=== PATIENT | male | born 1930 | race Caucasian/White ===

== ENCOUNTER 2017-05-30 23:31 | Inpatient (IN) | payer MEDICARE ==
[2017-05-31] MEDS: IV NORMAL SALINE 1000ML BAG 1,000 ML IV ×2 (00:15→15:38)
[2017-05-31 05:12] LABS: ADD MAN DIFF? NO
[2017-05-31 05:32] LABS: BASO # 0.1 x10^3/uL (0.0-0.2); BASO % 0 % (0-3); EOS # 0.1 x10^3/uL (0.0-0.7); EOS % 0 % (0-3); HEMATOCRIT 39.6 % (39.0-53.0); HEMOGLOBIN 13.1 g/dL (13.0-17.5); LYMPH # 0.5 x10^3/uL (1.0-4.8); LYMPH % 3 % (24-48); MEAN CORPUSCULAR HEMOGLOBIN 30 pg (25-35); MEAN CORPUSCULAR HGB CONC 33 g/dL (31-37); MEAN CORPUSCULAR VOLUME 90 fL (79-100); MONO # 0.9 x10^3/uL (0.0-1.1); MONO % 4 % (0-9); NEUT # 19.8 x10^3uL (1.8-7.7); NEUT % 93 % (31-73); PLATELET COUNT 166 x10^3/uL (140-400); RED CELL DISTRIBUTION WIDTH 14.4 % (11.5-14.5); WHITE BLOOD COUNT 21.4 x10^3/uL (4.0-11.0)
[2017-05-31 05:40] LABS: INR 1.3 (0.8-1.1); PROTHROMBIN TIME PATIENT 15.5 SEC (11.7-14.0)
[2017-05-31 05:41] LABS: ANION GAP 6 (6-14); BLOOD UREA NITROGEN 37 mg/dL (8-26); CALCIUM 8.8 mg/dL (8.5-10.1); CARBON DIOXIDE 29 mmol/L (21-32); CHLORIDE 109 mmol/L (98-107); CREATININE 1.6 mg/dL (0.7-1.3); GFR 41.4; GLUCOSE 143 mg/dL (70-99); POTASSIUM 4.6 mmol/L (3.5-5.1); SODIUM 144 mmol/L (136-145)
[2017-05-31 09:03] LABS: % BANDS 15 % (0-9); % LYMPHS 1 % (24-48); % MONOS 5 % (0-10); % SEGS 79 % (35-66); PLT ESTIMATE ADEQUATE (ADEQUATE)
[2017-05-31 09:07] LABS: BURR CELLS PRESENT
[2017-05-31] MEDS ORDERED: OLANZapine 5 MG TABLET PO (10:15)
[2017-05-31] MEDS ORDERED: LORazepam 1 MG TABLET PO (10:15)
[2017-05-31] MEDS ORDERED: MAG HYDROX/ALUMINUM HYD/SIMETH 30 ML ORAL.SUSP PO (10:15)
[2017-05-31] MEDS ORDERED: ACETAMINOPHEN 325 MG TABLET. PO (10:15)
[2017-05-31] MEDS ORDERED: METHYL SALICYLATE/MENTHOL TOPICAL OINTMENT 29GM TUBE. TP (10:15)
[2017-05-31] MEDS: ASPIRIN CHEWABLE 81 MG TABLET. PO (11:00)
[2017-05-31] MEDS: amLODIPine BESYLATE 10 MG TABLET PO (11:00)
[2017-05-31] MEDS: CHOLECALCIFEROL (VITAMIN D3) 1,000 UNIT TABLET PO (11:00)
[2017-05-31] MEDS: METOPROLOL SUCC 24HR ER 25 MG TAB.ER.24H. PO ×2 (11:00→21:00)
[2017-05-31] MEDS: DIVALPROEX DELAYED RELEASE 500 MG TABLET.DR. PO (11:00)
[2017-05-31] MEDS: CYANOCOBALAMIN (VITAMIN B-12) 1,000 MCG TABLET. PO (11:00)
[2017-05-31] MEDS: QUEtiapine 25 MG TABLET. PO (11:11)
[2017-05-31] MEDS: busPIRone 5 MG TABLET. PO ×3 (13:00→21:00)
[2017-05-31] MEDS: HALOPERIDOL LACTATE 5 MG/ML VIAL. IVP ×2 (15:38→19:56)
[2017-05-31] MEDS: QUEtiapine 100 MG TABLET. PO ×2 (16:00→21:00)
[2017-05-31] MEDS ORDERED: PIP/TAZO PER PHARMACY MC (18:45)
[2017-05-31] MEDS: MORPHINE SULFATE 4 MG/ML DISP.SYRIN. IV (20:17)
[2017-05-31] MEDS: PIPERACILLIN/TAZOBACTAM 3.375 GM in IV NORMAL SALINE 100ML 100 ML IV (20:20)
[2017-05-31] MEDS: AMITRIPTYLINE HCL 25 MG TABLET. PO (21:00)
[2017-05-31] MEDS ORDERED: NON FORMULARY ITEM (Melatonin 2 TAB) PO (21:00)
[2017-05-31] MEDS: ATORVASTATIN CALCIUM 40 MG TABLET. PO (21:00)
[2017-05-31] MEDS: VANCOMYCIN 1.75 GM in IV DEXTROSE 5 %-0.2 % NACL 500 ML IV (22:01)
[2017-06-01] MEDS: VANCOMYCIN PER PHARMACY MC ×2 (01:19→12:41)
[2017-06-01] MEDS: PIPERACILLIN/TAZOBACTAM 3.375 GM in IV NORMAL SALINE 100ML 100 ML IV ×4 (01:33→17:28)
[2017-06-01] MEDS: HALOPERIDOL LACTATE 5 MG/ML VIAL. IVP ×2 (02:20→11:17)
[2017-06-01] MEDS: IV NORMAL SALINE 1000ML BAG 1,000 ML IV ×3 (02:55→17:27)
[2017-06-01 04:22] LABS: MRSA BY PCR Negative (Negative)
[2017-06-01 05:31] LABS: ADD MAN DIFF? NO
[2017-06-01 05:41] LABS: BASO % 0 % (0-3); EOS # 0.3 x10^3/uL (0.0-0.7); EOS % 2 % (0-3); HEMATOCRIT 39.9 % (39.0-53.0); HEMOGLOBIN 13.3 g/dL (13.0-17.5); LYMPH # 1.3 x10^3/uL (1.0-4.8); LYMPH % 8 % (24-48); MEAN CORPUSCULAR HEMOGLOBIN 30 pg (25-35); MEAN CORPUSCULAR HGB CONC 33 g/dL (31-37); MEAN CORPUSCULAR VOLUME 89 fL (79-100); MONO # 0.9 x10^3/uL (0.0-1.1); MONO % 6 % (0-9); NEUT # 12.6 x10^3uL (1.8-7.7); NEUT % 83 % (31-73); PLATELET COUNT 150 x10^3/uL (140-400); RED BLOOD COUNT 4.51 x10^6/uL (4.30-5.70); RED CELL DISTRIBUTION WIDTH 14.2 % (11.5-14.5); WHITE BLOOD COUNT 15.2 x10^3/uL (4.0-11.0)
[2017-06-01 06:02] LABS: CHOLESTEROL 94 mg/dL (0-200); HDLC 45 mg/dL (40-60); LDLC 38 mg/dL (0-100); NON-HDL CHOLESTEROL 49 mg/dL (0-129); TRIGLYCERIDES 55 mg/dL (0-150); VLDLC 11 mg/dL (0-40)
[2017-06-01 06:03] LABS: ALBUMIN 3.2 g/dL (3.4-5.0); ALK PHOS 92 U/L (46-116); ALT (SGPT) 33 U/L (16-63); ANION GAP 10 (6-14); AST (SGOT) 26 U/L (15-37); BLOOD UREA NITROGEN 30 mg/dL (8-26); BUN/CREATININE RATIO 23 (6-20); CALCIUM 8.8 mg/dL (8.5-10.1); CARBON DIOXIDE 26 mmol/L (21-32); CHLORIDE 109 mmol/L (98-107); CREATININE 1.3 mg/dL (0.7-1.3); GFR 52.6; GLUCOSE 119 mg/dL (70-99); SODIUM 145 mmol/L (136-145); TOTAL BILIRUBIN 1.2 mg/dL (0.2-1.0); TOTAL PROTEIN 6.4 g/dL (6.4-8.2)
[2017-06-01 06:05] LABS: CHOLESTEROL/HDL RATIO 2.1
[2017-06-01] MEDS ORDERED: fentaNYL PF VIAL 100 MCG/2 ML VIAL IV ×4 (07:00→10:00)
[2017-06-01] MEDS ORDERED: PROCHLORPERAZINE 10 MG/2 ML VIAL. IV ×2 (07:00→10:00)
[2017-06-01] MEDS: IV RINGERS,LACTATED 1000ML 1,000 ML IV ×2 (07:00→09:48)
[2017-06-01] MEDS ORDERED: MORPHINE SULFATE 4 MG/ML DISP.SYRIN. IV (07:00)
[2017-06-01] MEDS ORDERED: HYDROmorphone 2 MG/ML VIAL IV ×2 (07:00→10:00)
[2017-06-01] MEDS ORDERED: LIDOCAINE 1% PF 2 ML VIAL. ID ×2 (07:00→10:00)
[2017-06-01] MEDS: QUEtiapine 25 MG TABLET. PO ×2 (07:30→11:30)
[2017-06-01] MEDS: BUDESONIDE 0.5 MG/2 ML NEBU. NEB ×2 (08:25→18:25)
[2017-06-01] MEDS: POLYETHYLENE GLYCOL 3350 17 GM PACKET. PO (09:00)
[2017-06-01] MEDS: CHOLECALCIFEROL (VITAMIN D3) 1,000 UNIT TABLET PO (09:00)
[2017-06-01] MEDS: busPIRone 5 MG TABLET. PO ×4 (09:00→21:12)
[2017-06-01] MEDS: amLODIPine BESYLATE 10 MG TABLET PO (09:00)
[2017-06-01] MEDS: DIVALPROEX DELAYED RELEASE 500 MG TABLET.DR. PO (09:00)
[2017-06-01] MEDS: ASPIRIN CHEWABLE 81 MG TABLET. PO (09:00)
[2017-06-01] MEDS: LACTOBACILLUS RHAMNOSUS GG 1 CAPSULE. PO ×2 (09:00→21:11)
[2017-06-01] MEDS: METOPROLOL SUCC 24HR ER 25 MG TAB.ER.24H. PO ×2 (09:00→21:12)
[2017-06-01] MEDS: CYANOCOBALAMIN (VITAMIN B-12) 1,000 MCG TABLET. PO (09:00)
[2017-06-01] MEDS ORDERED: MORPHINE SULFATE 2 MG/ML DISP.SYRIN. IV (10:00)
[2017-06-01] MEDS ORDERED: DEXAMETHASONE SOD PHOS 20 MG/5 ML VIAL. (11:13)
[2017-06-01] MEDS ORDERED: ONDANSETRON PF 4 MG/2 ML VIAL. (11:13)
[2017-06-01] MEDS ORDERED: PROPOFOL 20 ML IV (11:13)
[2017-06-01] MEDS ORDERED: PHENYLEPHRINE 10 MG/ML VIAL. (11:13)
[2017-06-01] MEDS ORDERED: LIDOCAINE 1% PF 5 ML VIAL. (11:13)
[2017-06-01] MEDS ORDERED: fentaNYL PF VIAL 100 MCG/2 ML VIAL (11:13)
[2017-06-01] MEDS ORDERED: ROCURONIUM 50 MG/5 ML VIAL. (11:13)
[2017-06-01] MEDS ORDERED: DESFLURANE > 120 MINUTES IH (11:15)
[2017-06-01] MEDS: IPRATRPIUM/ALBUTEROL 0.5/2.5MG 3 ML NEBU. NEB ×3 (12:42→18:25)
[2017-06-01] MEDS: MORPHINE SULFATE 5 MG, KETOROLAC 30 MG, ROPIVacaine 0.5% PF 60 ML, EPINEPHrine 0.5 MG i... INT ART (13:52)
[2017-06-01] MEDS ORDERED: GLYCOPYRROLATE 1 MG/5 ML VIAL. (14:59)
[2017-06-01] MEDS ORDERED: NEOSTIGMINE 10 MG/10 ML VIAL. (14:59)
[2017-06-01] MEDS ORDERED: SEVOFLURANE > 120 MINUTES. IH (15:01)
[2017-06-01] MEDS: QUEtiapine 100 MG TABLET. PO ×2 (16:00→21:12)
[2017-06-01] MEDS: MORPHINE SULFATE 4 MG/ML DISP.SYRIN. IV (18:21)
[2017-06-01] MEDS: VANCOMYCIN 1.25 GM in IV DEXTROSE 5 %-0.2 % NACL 250 ML IV (21:11)
[2017-06-01] MEDS: AMITRIPTYLINE HCL 25 MG TABLET. PO (21:12)
[2017-06-01] MEDS: ATORVASTATIN CALCIUM 40 MG TABLET. PO (21:12)
[2017-06-02] MEDS: MORPHINE SULFATE 4 MG/ML DISP.SYRIN. IV ×2 (02:56→07:16)
[2017-06-02] MEDS: PIPERACILLIN/TAZOBACTAM 3.375 GM in IV NORMAL SALINE 100ML 100 ML IV ×5 (05:56→23:59)
[2017-06-02] MEDS: HEPARIN PF for SUB-Q USE 5,000 UNIT/0.5 ML VIAL. SQ ×3 (05:58→21:24)
[2017-06-02] MEDS: IPRATRPIUM/ALBUTEROL 0.5/2.5MG 3 ML NEBU. NEB ×4 (07:16→18:25)
[2017-06-02] MEDS: BUDESONIDE 0.5 MG/2 ML NEBU. NEB ×2 (07:17→18:25)
[2017-06-02] MEDS: QUEtiapine 25 MG TABLET. PO ×2 (08:09→11:33)
[2017-06-02] MEDS: DIVALPROEX DELAYED RELEASE 500 MG TABLET.DR. PO (08:49)
[2017-06-02] MEDS: CHOLECALCIFEROL (VITAMIN D3) 1,000 UNIT TABLET PO (08:49)
[2017-06-02] MEDS: LACTOBACILLUS RHAMNOSUS GG 1 CAPSULE. PO ×2 (08:50→21:10)
[2017-06-02] MEDS: busPIRone 5 MG TABLET. PO ×4 (08:50→21:10)
[2017-06-02] MEDS: ASPIRIN CHEWABLE 81 MG TABLET. PO (08:50)
[2017-06-02] MEDS: CYANOCOBALAMIN (VITAMIN B-12) 1,000 MCG TABLET. PO (08:50)
[2017-06-02] MEDS: METOPROLOL SUCC 24HR ER 25 MG TAB.ER.24H. PO ×2 (08:51→21:11)
[2017-06-02] MEDS: amLODIPine BESYLATE 10 MG TABLET PO (08:53)
[2017-06-02] MEDS: POLYETHYLENE GLYCOL 3350 17 GM PACKET. PO (08:55)
[2017-06-02] MEDS: IV NORMAL SALINE 1000ML BAG 1,000 ML IV (11:57)
[2017-06-02] MEDS: VANCOMYCIN PER PHARMACY MC ×2 (13:27→23:18)
[2017-06-02] MEDS: QUEtiapine 100 MG TABLET. PO ×2 (15:37→21:10)
[2017-06-02] MEDS: AMITRIPTYLINE HCL 25 MG TABLET. PO (21:10)
[2017-06-02] MEDS: ATORVASTATIN CALCIUM 40 MG TABLET. PO (21:10)
[2017-06-02 21:44] LABS: CREATININE 1.3 mg/dL (0.7-1.3)
[2017-06-02 21:44] LABS: GFR 52.6
[2017-06-02 21:51] LABS: VANC TR 6.2 mcg/mL (10.0-20.0)
[2017-06-02] MEDS: VANCOMYCIN 1 GM in IV DEXTROSE 5 %-0.2 % NACL 250 ML IV (22:51)
[2017-06-03 05:16] LABS: HEMATOCRIT 34.2 % (39.0-53.0); HEMOGLOBIN 11.5 g/dL (13.0-17.5); MEAN CORPUSCULAR HEMOGLOBIN 30 pg (25-35); MEAN CORPUSCULAR HGB CONC 34 g/dL (31-37); MEAN CORPUSCULAR VOLUME 89 fL (79-100); PLATELET COUNT 148 x10^3/uL (140-400); RED BLOOD COUNT 3.83 x10^6/uL (4.30-5.70); RED CELL DISTRIBUTION WIDTH 14.5 % (11.5-14.5); WHITE BLOOD COUNT 16.7 x10^3/uL (4.0-11.0)
[2017-06-03 05:54] LABS: ALBUMIN 2.8 g/dL (3.4-5.0); ALBUMIN/GLOBULIN RATIO 0.8 (1.0-1.7); ALK PHOS 80 U/L (46-116); ALT (SGPT) 29 U/L (16-63); ANION GAP 9 (6-14); AST (SGOT) 43 U/L (15-37); BLOOD UREA NITROGEN 18 mg/dL (8-26); BUN/CREATININE RATIO 18 (6-20); CALCIUM 8.4 mg/dL (8.5-10.1); CARBON DIOXIDE 25 mmol/L (21-32); CHLORIDE 112 mmol/L (98-107); GFR 71.2; GLUCOSE 118 mg/dL (70-99); POTASSIUM 3.7 mmol/L (3.5-5.1); SODIUM 146 mmol/L (136-145); TOTAL PROTEIN 6.5 g/dL (6.4-8.2)
[2017-06-03] MEDS: IV NORMAL SALINE 1000ML BAG 1,000 ML IV (06:09)
[2017-06-03] MEDS: PIPERACILLIN/TAZOBACTAM 3.375 GM in IV NORMAL SALINE 100ML 100 ML IV ×4 (06:09→23:58)
[2017-06-03] MEDS: HEPARIN PF for SUB-Q USE 5,000 UNIT/0.5 ML VIAL. SQ ×3 (06:13→22:29)
[2017-06-03] MEDS: IPRATRPIUM/ALBUTEROL 0.5/2.5MG 3 ML NEBU. NEB ×4 (07:16→20:32)
[2017-06-03] MEDS: BUDESONIDE 0.5 MG/2 ML NEBU. NEB ×2 (07:17→20:32)
[2017-06-03] MEDS: QUEtiapine 25 MG TABLET. PO ×2 (07:30→11:30)
[2017-06-03] MEDS: ASPIRIN CHEWABLE 81 MG TABLET. PO (09:00)
[2017-06-03] MEDS: VANCOMYCIN PER PHARMACY MC (11:07)
[2017-06-03] MEDS: DIVALPROEX DELAYED RELEASE 500 MG TABLET.DR. PO (11:42)
[2017-06-03] MEDS: LACTOBACILLUS RHAMNOSUS GG 1 CAPSULE. PO ×2 (11:42→21:00)
[2017-06-03] MEDS: POLYETHYLENE GLYCOL 3350 17 GM PACKET. PO (11:42)
[2017-06-03] MEDS: busPIRone 5 MG TABLET. PO ×4 (11:42→21:00)
[2017-06-03] MEDS: CHOLECALCIFEROL (VITAMIN D3) 1,000 UNIT TABLET PO (11:43)
[2017-06-03] MEDS: CYANOCOBALAMIN (VITAMIN B-12) 1,000 MCG TABLET. PO (11:43)
[2017-06-03] MEDS: METOPROLOL SUCC 24HR ER 25 MG TAB.ER.24H. PO ×2 (11:43→21:00)
[2017-06-03] MEDS: VANCOMYCIN 1 GM in IV DEXTROSE 5 %-0.2 % NACL 250 ML IV ×2 (11:57→22:22)
[2017-06-03] MEDS: AMINO AC 3%/ELECTROLYTE/GLYCER 1,000 ML IV (12:56)
[2017-06-03] MEDS: QUEtiapine 100 MG TABLET. PO ×2 (15:24→21:00)
[2017-06-03] MEDS: HALOPERIDOL LACTATE 5 MG/ML VIAL. IVP (17:51)
[2017-06-03] MEDS: AMITRIPTYLINE HCL 25 MG TABLET. PO (21:00)
[2017-06-03] MEDS: ATORVASTATIN CALCIUM 40 MG TABLET. PO (21:00)
[2017-06-04] MEDS: AMINO AC 3%/ELECTROLYTE/GLYCER 1,000 ML IV ×2 (02:04→13:59)
[2017-06-04 05:14] LABS: HEMATOCRIT 38.7 % (39.0-53.0); HEMOGLOBIN 12.9 g/dL (13.0-17.5); MEAN CORPUSCULAR HEMOGLOBIN 30 pg (25-35); MEAN CORPUSCULAR HGB CONC 33 g/dL (31-37); MEAN CORPUSCULAR VOLUME 89 fL (79-100); PLATELET COUNT 196 x10^3/uL (140-400); RED BLOOD COUNT 4.35 x10^6/uL (4.30-5.70); RED CELL DISTRIBUTION WIDTH 14.7 % (11.5-14.5); WHITE BLOOD COUNT 14.2 x10^3/uL (4.0-11.0)
[2017-06-04 05:35] LABS: ANION GAP 11 (6-14); BLOOD UREA NITROGEN 21 mg/dL (8-26); CALCIUM 9.3 mg/dL (8.5-10.1); CARBON DIOXIDE 26 mmol/L (21-32); CHLORIDE 107 mmol/L (98-107); GFR 71.2; GLUCOSE 134 mg/dL (70-99); MAGNESIUM 2.1 mg/dL (1.8-2.4); POTASSIUM 3.6 mmol/L (3.5-5.1); SODIUM 144 mmol/L (136-145)
[2017-06-04] MEDS: PIPERACILLIN/TAZOBACTAM 3.375 GM in IV NORMAL SALINE 100ML 100 ML IV ×4 (06:38→23:48)
[2017-06-04] MEDS: HEPARIN PF for SUB-Q USE 5,000 UNIT/0.5 ML VIAL. SQ ×3 (06:43→21:33)
[2017-06-04] MEDS: QUEtiapine 25 MG TABLET. PO ×2 (07:05→11:30)
[2017-06-04] MEDS: BUDESONIDE 0.5 MG/2 ML NEBU. NEB ×2 (07:17→20:13)
[2017-06-04] MEDS: IPRATRPIUM/ALBUTEROL 0.5/2.5MG 3 ML NEBU. NEB ×4 (07:17→20:13)
[2017-06-04] MEDS: busPIRone 5 MG TABLET. PO ×4 (08:06→20:12)
[2017-06-04] MEDS: ASPIRIN CHEWABLE 81 MG TABLET. PO (08:06)
[2017-06-04] MEDS: LACTOBACILLUS RHAMNOSUS GG 1 CAPSULE. PO ×2 (08:06→20:12)
[2017-06-04] MEDS: CHOLECALCIFEROL (VITAMIN D3) 1,000 UNIT TABLET PO (08:07)
[2017-06-04] MEDS: METOPROLOL SUCC 24HR ER 25 MG TAB.ER.24H. PO ×2 (08:07→20:12)
[2017-06-04] MEDS: CYANOCOBALAMIN (VITAMIN B-12) 1,000 MCG TABLET. PO (08:07)
[2017-06-04] MEDS: DIVALPROEX DELAYED RELEASE 500 MG TABLET.DR. PO (08:07)
[2017-06-04] MEDS: POLYETHYLENE GLYCOL 3350 17 GM PACKET. PO (08:07)
[2017-06-04] MEDS: VANCOMYCIN 1 GM in IV DEXTROSE 5 %-0.2 % NACL 250 ML IV ×3 (11:00→21:28)
[2017-06-04 11:16] LABS: VANC TR 8.2 mcg/mL (10.0-20.0)
[2017-06-04] MEDS: VANCOMYCIN PER PHARMACY MC ×2 (11:38→11:46)
[2017-06-04] MEDS: QUEtiapine 100 MG TABLET. PO ×2 (16:00→20:12)
[2017-06-04] MEDS: ATORVASTATIN CALCIUM 40 MG TABLET. PO (20:12)
[2017-06-04] MEDS: AMITRIPTYLINE HCL 25 MG TABLET. PO (20:12)
[2017-06-04] MEDS: ACETAMINOPHEN 325 MG SUPP.RECT. PR (23:48)
[2017-06-05] MEDS: VANCOMYCIN 1 GM in IV DEXTROSE 5 %-0.2 % NACL 250 ML IV ×2 (03:48→12:53)
[2017-06-05] MEDS: AMINO AC 3%/ELECTROLYTE/GLYCER 1,000 ML IV (03:49)
[2017-06-05 05:11] LABS: HEMATOCRIT 33.6 % (39.0-53.0); HEMOGLOBIN 11.2 g/dL (13.0-17.5); MEAN CORPUSCULAR HEMOGLOBIN 30 pg (25-35); MEAN CORPUSCULAR HGB CONC 33 g/dL (31-37); MEAN CORPUSCULAR VOLUME 89 fL (79-100); PLATELET COUNT 215 x10^3/uL (140-400); RED BLOOD COUNT 3.79 x10^6/uL (4.30-5.70); RED CELL DISTRIBUTION WIDTH 14.6 % (11.5-14.5); WHITE BLOOD COUNT 18.5 x10^3/uL (4.0-11.0)
[2017-06-05 05:27] LABS: ANION GAP 12 (6-14); BLOOD UREA NITROGEN 31 mg/dL (8-26); CALCIUM 8.8 mg/dL (8.5-10.1); CARBON DIOXIDE 24 mmol/L (21-32); CHLORIDE 111 mmol/L (98-107); GFR 71.2; GLUCOSE 164 mg/dL (70-99); MAGNESIUM 2.2 mg/dL (1.8-2.4); POTASSIUM 3.3 mmol/L (3.5-5.1); SODIUM 147 mmol/L (136-145)
[2017-06-05] MEDS: PIPERACILLIN/TAZOBACTAM 3.375 GM in IV NORMAL SALINE 100ML 100 ML IV ×3 (06:00→17:12)
[2017-06-05] MEDS: HEPARIN PF for SUB-Q USE 5,000 UNIT/0.5 ML VIAL. SQ ×3 (06:03→23:32)
[2017-06-05] MEDS: QUEtiapine 25 MG TABLET. PO ×2 (06:06→11:30)
[2017-06-05] MEDS: BUDESONIDE 0.5 MG/2 ML NEBU. NEB ×2 (07:08→20:08)
[2017-06-05] MEDS: IPRATRPIUM/ALBUTEROL 0.5/2.5MG 3 ML NEBU. NEB ×4 (07:08→20:07)
[2017-06-05] MEDS: busPIRone 5 MG TABLET. PO ×4 (09:00→21:00)
[2017-06-05] MEDS: METOPROLOL SUCC 24HR ER 25 MG TAB.ER.24H. PO ×2 (09:00→21:00)
[2017-06-05] MEDS: CHOLECALCIFEROL (VITAMIN D3) 1,000 UNIT TABLET PO (09:00)
[2017-06-05] MEDS: ASPIRIN CHEWABLE 81 MG TABLET. PO (09:00)
[2017-06-05] MEDS: DIVALPROEX DELAYED RELEASE 500 MG TABLET.DR. PO (09:00)
[2017-06-05] MEDS: CYANOCOBALAMIN (VITAMIN B-12) 1,000 MCG TABLET. PO (09:00)
[2017-06-05] MEDS: POLYETHYLENE GLYCOL 3350 17 GM PACKET. PO (09:00)
[2017-06-05] MEDS: LACTOBACILLUS RHAMNOSUS GG 1 CAPSULE. PO ×2 (09:00→21:00)
[2017-06-05 11:57] LABS: VANC TR 14.3 mcg/mL (10.0-20.0)
[2017-06-05] MEDS: POTASSIUM CL 40MEQ D5-0.45NACL 1,000 ML IV (14:29)
[2017-06-05] MEDS: QUEtiapine 100 MG TABLET. PO ×2 (15:17→21:00)
[2017-06-05 15:50] LABS: BILIRUBIN,URINE NEGATIVE (NEG); CLARITY,URINE CLEAR; COLOR,URINE YELLOW; GLUCOSE,URINE NEGATIVE (NEG); NITRITE,URINE NEGATIVE (NEG); PH,URINE 5.5; PROTEIN,URINE 30 mg/dL (NEG-TRACE)
[2017-06-05 16:00] LABS: SQUAMOUS EPITHELIAL CELL,UR OCC /LPF
[2017-06-05 16:02] LABS: BACTERIA,URINE 0 /HPF (0-FEW); WBC,URINE 0 /HPF (0-4)
[2017-06-05] MEDS: AMITRIPTYLINE HCL 25 MG TABLET. PO (21:00)
[2017-06-05] MEDS: ATORVASTATIN CALCIUM 40 MG TABLET. PO (21:00)
[2017-06-06] MEDS: PIPERACILLIN/TAZOBACTAM 3.375 GM in IV NORMAL SALINE 100ML 100 ML IV ×5 (00:20→23:33)
[2017-06-06] MEDS: POTASSIUM CL 40MEQ D5-0.45NACL 1,000 ML IV (06:11)
[2017-06-06] MEDS: HEPARIN PF for SUB-Q USE 5,000 UNIT/0.5 ML VIAL. SQ ×3 (06:20→21:52)
[2017-06-06 06:53] LABS: HEMATOCRIT 32.1 % (39.0-53.0); HEMOGLOBIN 10.5 g/dL (13.0-17.5); MEAN CORPUSCULAR HEMOGLOBIN 29 pg (25-35); MEAN CORPUSCULAR HGB CONC 33 g/dL (31-37); MEAN CORPUSCULAR VOLUME 89 fL (79-100); PLATELET COUNT 266 x10^3/uL (140-400); RED CELL DISTRIBUTION WIDTH 14.4 % (11.5-14.5)
[2017-06-06] MEDS: BUDESONIDE 0.5 MG/2 ML NEBU. NEB ×2 (06:56→19:16)
[2017-06-06] MEDS: IPRATRPIUM/ALBUTEROL 0.5/2.5MG 3 ML NEBU. NEB ×4 (06:56→19:16)
[2017-06-06 07:24] LABS: ANION GAP 12 (6-14); BLOOD UREA NITROGEN 27 mg/dL (8-26); CALCIUM 8.7 mg/dL (8.5-10.1); CARBON DIOXIDE 27 mmol/L (21-32); CHLORIDE 115 mmol/L (98-107); GFR 71.2; GLUCOSE 156 mg/dL (70-99); POTASSIUM 3.7 mmol/L (3.5-5.1); SODIUM 154 mmol/L (136-145)
[2017-06-06] MEDS: LACTOBACILLUS RHAMNOSUS GG 1 CAPSULE. PO ×2 (09:41→21:00)
[2017-06-06] MEDS: busPIRone 5 MG TABLET. PO ×4 (09:41→21:00)
[2017-06-06] MEDS: ASPIRIN CHEWABLE 81 MG TABLET. PO (09:41)
[2017-06-06] MEDS: QUEtiapine 25 MG TABLET. PO ×2 (09:41→11:28)
[2017-06-06] MEDS: DIVALPROEX DELAYED RELEASE 500 MG TABLET.DR. PO (09:43)
[2017-06-06] MEDS: POLYETHYLENE GLYCOL 3350 17 GM PACKET. PO (09:44)
[2017-06-06] MEDS: CHOLECALCIFEROL (VITAMIN D3) 1,000 UNIT TABLET PO (09:44)
[2017-06-06] MEDS: CYANOCOBALAMIN (VITAMIN B-12) 1,000 MCG TABLET. PO (09:44)
[2017-06-06] MEDS: METOPROLOL SUCC 24HR ER 25 MG TAB.ER.24H. PO ×2 (09:44→21:00)
[2017-06-06] MEDS: POTASSIUM CL 20MEQ IN D5W 1,000 ML IV (11:27)
[2017-06-06] MEDS: BISACODYL 10 MG SUPP.RECT. PR (13:33)
[2017-06-06] MEDS: VANCOMYCIN PER PHARMACY MC ×2 (14:02→14:07)
[2017-06-06] MEDS ORDERED: VANCOMYCIN 2 GM in IV DEXTROSE 5 %-0.2 % NACL 500 ML IV (14:30)
[2017-06-06 14:37] LABS: BASE EXCESS ABG 0 mmol/L (-3-3); HCO3 ABG 31 mmol/L (21-28); PO2 ABG 75 mmHg (65-108); SAT O2 ABG 90 % (92-99)
[2017-06-06 15:25] LABS: FIO2 ABG 50; PCO2 ABG 92 mmHg (35-46); PH ABG 7.15 (7.35-7.45)
[2017-06-06] MEDS: VANCOMYCIN 1.25 GM in IV DEXTROSE 5 %-0.2 % NACL 250 ML IV (16:03)
[2017-06-06] MEDS: QUEtiapine 100 MG TABLET. PO ×2 (16:15→21:00)
[2017-06-06] MEDS: ATORVASTATIN CALCIUM 40 MG TABLET. PO (21:00)
[2017-06-06] MEDS: AMITRIPTYLINE HCL 25 MG TABLET. PO (21:00)
[2017-06-07] MEDS: POTASSIUM CL 20MEQ IN D5W 1,000 ML IV ×2 (01:20→12:00)
[2017-06-07] MEDS: VANCOMYCIN 1.25 GM in IV DEXTROSE 5 %-0.2 % NACL 250 ML IV (03:15)
[2017-06-07] MEDS: HEPARIN PF for SUB-Q USE 5,000 UNIT/0.5 ML VIAL. SQ ×2 (05:56→14:00)
[2017-06-07] MEDS: PIPERACILLIN/TAZOBACTAM 3.375 GM in IV NORMAL SALINE 100ML 100 ML IV ×2 (05:57→11:45)
[2017-06-07] MEDS: QUEtiapine 25 MG TABLET. PO ×2 (05:57→11:25)
[2017-06-07] MEDS: IPRATRPIUM/ALBUTEROL 0.5/2.5MG 3 ML NEBU. NEB ×3 (06:57→15:09)
[2017-06-07] MEDS: BUDESONIDE 0.5 MG/2 ML NEBU. NEB (06:57)
[2017-06-07 07:18] LABS: HEMATOCRIT 28.1 % (39.0-53.0); HEMOGLOBIN 9.4 g/dL (13.0-17.5); MEAN CORPUSCULAR HEMOGLOBIN 30 pg (25-35); MEAN CORPUSCULAR HGB CONC 33 g/dL (31-37); MEAN CORPUSCULAR VOLUME 89 fL (79-100); PLATELET COUNT 278 x10^3/uL (140-400); RED BLOOD COUNT 3.15 x10^6/uL (4.30-5.70); RED CELL DISTRIBUTION WIDTH 14.6 % (11.5-14.5); WHITE BLOOD COUNT 17.3 x10^3/uL (4.0-11.0)
[2017-06-07 07:32] LABS: ANION GAP 11 (6-14); BLOOD UREA NITROGEN 50 mg/dL (8-26); CALCIUM 8.6 mg/dL (8.5-10.1); CARBON DIOXIDE 25 mmol/L (21-32); CHLORIDE 117 mmol/L (98-107); CREATININE 1.9 mg/dL (0.7-1.3); GFR 33.9; GLUCOSE 153 mg/dL (70-99); POTASSIUM 3.2 mmol/L (3.5-5.1); SODIUM 153 mmol/L (136-145)
[2017-06-07] MEDS: METOPROLOL SUCC 24HR ER 25 MG TAB.ER.24H. PO (09:00)
[2017-06-07] MEDS: POLYETHYLENE GLYCOL 3350 17 GM PACKET. PO (09:00)
[2017-06-07] MEDS: DIVALPROEX DELAYED RELEASE 500 MG TABLET.DR. PO (09:00)
[2017-06-07] MEDS: LACTOBACILLUS RHAMNOSUS GG 1 CAPSULE. PO (09:00)
[2017-06-07] MEDS: busPIRone 5 MG TABLET. PO ×2 (09:00→11:36)
[2017-06-07] MEDS: CYANOCOBALAMIN (VITAMIN B-12) 1,000 MCG TABLET. PO (09:00)
[2017-06-07] MEDS: ASPIRIN CHEWABLE 81 MG TABLET. PO (09:00)
[2017-06-07] MEDS: CHOLECALCIFEROL (VITAMIN D3) 1,000 UNIT TABLET PO (09:00)
[2017-06-07] MEDS: MORPHINE SULFATE 4 MG/ML DISP.SYRIN. IV ×2 (11:44→15:39)
[2017-06-07] MEDS: HALOPERIDOL LACTATE 5 MG/ML VIAL. IVP ×2 (12:44→16:36)
[2017-06-07] MEDS: QUEtiapine 100 MG TABLET. PO (15:42)
[2017-06-07] MEDS ORDERED: PIPERACILLIN/TAZOBACTAM 3.375 GM in IV NORMAL SALINE 50ML 50 ML IV (18:00)
== END 2017-06-07 16:15 | disposition hospice, home (50) | DRG 853 ==
LOC: 4 NORTH 23:31
PROC: 0QS604Z Reposition Right Upper Femur with Internal Fixation Device, Open Approach (ICD-10-PCS; principal; 2017-06-01 13:00)
PROC: 5A09357 Assistance with Respiratory Ventilation, Less than 24 Consecutive Hours, Continuous Positive Airway Pressure (ICD-10-PCS; 2017-06-01 13:21)
DX: A41.9 Sepsis, unspecified organism (principal); S72.001A Fracture of unspecified part of neck of right femur, initial encounter for closed fracture; J69.0 Pneumonitis due to inhalation of food and vomit; J96.01 Acute respiratory failure with hypoxia; G93.41 Metabolic encephalopathy; N17.9 Acute kidney failure, unspecified; E87.0 Hyperosmolality and hypernatremia; R13.10 Dysphagia, unspecified; F03.91 Unspecified dementia, unspecified severity, with behavioral disturbance; W18.39XA Other fall on same level, initial encounter; I11.0 Hypertensive heart disease with heart failure; I50.9 Heart failure, unspecified; E78.5 Hyperlipidemia, unspecified; E87.6 Hypokalemia; I48.0 Paroxysmal atrial fibrillation; Z86.73 Personal history of transient ischemic attack (TIA), and cerebral infarction without residual deficits; Z95.0 Presence of cardiac pacemaker; Z96.641 Presence of right artificial hip joint; K59.00 Constipation, unspecified; Y93.89 Activity, other specified; Y92.89 Other specified places as the place of occurrence of the external cause; Y99.8 Other external cause status
CPT/HCPCS: 36415; 36600; 71045; 71250; 72170; 73501; 73552; 80048; 80053; 80061; 80202; 81001; 82565; 82805; 83735; 85007; 85025; 85027; 85610; 86850; 86900; 86901; 87040; 87086; 87641; 88305; 88311; 92610-GN; 93005; 93306; 93970; 94640; 94660; 94760; 97110-GP; 97163-GP; 97166-GO; 97530-GO; 97530-GP; 97535-GO; J0171; J0690; J1100; J1630; J1885; J2060; J2270; J2405; J2543; J2704; J2710; J2795; J3010; J3370; J3490; J7030; J7042; J7120; J7620; J7626